=== PATIENT | male | born 1965 ===

== ENCOUNTER 2017-10-14 07:21 | Day surgery (SDC) | payer OTHER ==
--- NOTE | 2017-10-11 16:03 | HP ---
PREOPERATIVE HISTORY AND PHYSICAL: DATE OF SURGERY/ADMISSION: 10/14/17 DATE OF OFFICE VISIT/ENCOUNTER: 10/05/17 ATTENDING SURGEON: Jaylin Ahumada MD* (dictated by RORO Hernandez). PROCEDURE: Excision mass, right ring finger. CHIEF COMPLAINT: Mass, right ring finger. HISTORY OF PRESENT ILLNESS: This is a 52-year-old male who sustained injury to his right finger while at work in November of 2016. A part that he was using fell on his hand, arm, and shoulder. It was a very heavy part approximately 200 pounds. Since then he developed a lump on his right finger and the lump is gradually getting bigger and becoming increasingly bothersome. He denies any tingling or numbness associated with it and he thinks using the right hand causes pain. 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 He would like to have the lump surgically excised. PAST MEDICAL HISTORY: History of hypertension. PAST SURGICAL HISTORY: 1. Cervical spine surgery, C6-C7. 2. Cyst excision left wrist. CURRENT MEDICATIONS: None. ALLERGIES: No known drug allergies. FAMILY MEDICAL HISTORY: Noncontributory. The patient's grandmother is 105 years old and the oldest woman in [employer]. SOCIAL HISTORY: The patient is an employed as a manual lathe machinist. He works for [employer]. He denies smoking, recreational drug use and does not . REVIEW OF SYSTEMS: cardiothoracic: Negative for hypertension, chest pain, palpitations, or edema. Respiratory: Negative for shortness of breath with exertion. Chronic cough and wheezing. GI: Negative for nausea, vomiting , diarrhea, constipation, or GERD. : Negative for nocturia, urinary frequency, urgency, history of UTIs, or kidney problems. Musculoskeletal: Positive for current complaint. Neurologic: Negative for chronic or intermittent back pain or history of fracture. Neurological: Negative for paresthesias, numbness, history of seizures, stroke, or poor balance. Endocrine : Negative for diabetes or thyroid issues. Hematologic: Negative for easy bruising, anemia, bleeding disorder, or history of DVT. Infectious Disease: Negative for history of MRSA, hepatitis C, or HIV. PHYSICAL EXAMINATION GENERAL: Well-developed, well-nourished 52-year-old male, in no acute distress. VITAL SIGNS: Height is 6 feet 1 inch, weight 213 pounds. Blood pressure 140/94 , pulse rate 78. HEENT: Normocephalic, atraumatic. Pupils are equal, round, and reactive to light and accommodation. Extraocular movements are intact. NECK: Supple. No palpable lymph nodes. Throat is clear. PULMONARY: Lungs are clear to auscultation bilaterally. No wheezes, rales, or rhonchi. CARDIOVASCULAR: Regular rate and rhythm. S1 and S2. No murmurs, rubs, or gallops. No edema. ABDOMEN: Positive bowel sounds, soft, nontender. NEUROLOGIC: Alert and oriented x3. Cranial nerves II through XII are intact. Sensation is intact. MUSCULOSKELETAL: On exam of his right hand, he has a 1 cm diameter mass on the right ring finger at the proximal phalanx level. It is slightly tender to palpation. Negative Tinel's sign. He can make a fist and has full extension of his fingers. Sensation is intact to the tip of the finger. SKIN: Intact. IMAGING STUDIES: X-rays AP, lateral and oblique to the right ring finger looks normal. IMPRESSION: Right ring finger soft tissue mass. PLAN: The patient is scheduled to undergo an excision mass of right ring finger with Dr. Ahumada on 10/14/17. He will return to the office in 10 days postop for followup and suture removal. A prescription for Ultracet was e- scribed to the patient's pharmacy for postoperative pain management. RORO HERNANDEZ [id number]/[facility] #: [id number] [facility] CENTERNichelle
[~2017-10-14 07:21] MED LIST: Buffered Lidocaine 0.9% SYRIN* 5 ML/SYR SYRINGE INTRADERM ONE; Dexamethasone TAB* 4 MG ONE; Dexamethasone TAB* 4 MG PO ONE; DiMENhydriNATE IV* 50 MG/ML VIAL IV PUSH PRN; Famotidine IV* 10 MG/ML 2 ML (20 mg) IV ONE; Famotidine IV* 10 MG/ML 2 ML (20 mg) ONE; Lidocaine 1% INJ* 10 MG/ML 30 ML SDV ONE; Morphine INJ* 2 MG/ML 1 ML SYRINGE (TWO MG - NEW SYRINGE VERSION) IV PRN; Naloxone* 0.4 MG/ML 1 ML VIAL IV PRN; Ondansetron ODT TAB* 4 MG ONE; Ondansetron TAB* 4 MG PO ONE; PROCHLORPERAZINE INJ 5 MG/ML 2 ML VIAL IV PRN; fentaNYL* 50 MCG/ML 2 ML VIAL (100 MCG VIAL) IV PRN; oxyCODONE/Acetamin 5/325 MG* TAB PO PRN
[2017-10-14] MEDS ORDERED: KETAMINE HCL* 50 MG/ML 10 ML VIAL ONE (08:20)
[2017-10-14] MEDS ORDERED: fentaNYL* 50 MCG/ML 2 ML VIAL (100 MCG VIAL) ONE (08:20)
[2017-10-14] MEDS ORDERED: Midazolam* 1 MG/ML 5 ML VIAL (5 MG) ONE (08:20)
[2017-10-14] MEDS ORDERED: hydrALAZINE IV* 20 MG/ML VIAL ONE (08:48)
[2017-10-14] MEDS ORDERED: Labetalol IV* 5 MG/ML 20 ML VIAL ONE (08:48)
[2017-10-14] MEDS ORDERED: Ketorolac INJ* 30 MG/ML 1 ML VIAL ONE (09:22)
[2017-10-14 10:05] VITALS: BP 133/83
--- NOTE | 2017-10-14 20:49 | OP ---
DATE OF OPERATION: 10/14/17 - [facility] DATE OF : 69. SURGEON: Dr. Ahumada. CREATIVE MANAGER: RORO Hernandez. ANESTHESIA: Local MAC. PRE-OP DIAGNOSIS: Right ring finger mass. POST-OP DIAGNOSIS: Right ring finger mass. OPERATIVE PROCEDURE: Removal of right ring finger mass. INDICATIONS FOR PROCEDURE: Tyrone is a 52-year-old man with a painful mass at the MP flex and crease of his right ring finger. He presents for removal. ESTIMATED BLOOD LOSS: Zero. TOURNIQUET TIME: 20 minutes. DESCRIPTION OF PROCEDURE: The patient was brought to the operating room, was given a sedation anesthetic, and a digital block with 10 cc of 1% plain lidocaine. The skin of his right hand and forearm was prepped and draped in the usual sterile fashion. The hand and forearm were exsanguinated and the tourniquet elevated to 250 mmHg. A transverse incision was made centered over the mass and dissected through the subcutaneous tissue. The digital neurovascular bundle was retracted by the surgical territory manager, Bisi Loving. The mass was a ganglion cyst emanating from the flexor tendon sheath. It was removed with a small portion of flexor tendon sheath and sent for pathology. The wound was irrigated and the skin edges were reapproximated with 4-0 nylon suture. The wound was dressed with Xeroform, 4x4, Webril, and Coban. The patient tolerated the procedure well and was brought to the recovery room in good condition. [id number]/[facility] #: [id number] [facility]
== END 2017-10-14 09:58 | disposition home or self-care (01) ==
LOC: OREAST 07:21
PROVIDERS: ATTEND Orthopaedic Surgery
DX: M67.441 Ganglion, right hand (principal); I10 Essential (primary) hypertension
CPT/HCPCS: 88304; A9270-GY; J0360; J1885; J2250; J3010; J8540

== ENCOUNTER 2019-05-08 11:25 | Day surgery (SDC) | payer BC ==
--- NOTE | 2019-05-08 09:41 | HP ---
PREOPERATIVE HISTORY AND PHYSICAL: DATE OF ADMISSION/SURGERY: 05/08/19 DATE OF OFFICE VISIT/ENCOUNTER: 05/07/19 ATTENDING SURGEON: Jaylin Jauregui MD * (DICTATED BY RORO AUGUSTINE) PROCEDURE: Ganglion cyst excision, right wrist. HISTORY OF PRESENT ILLNESS: This is a 53-year-old male who has a cystic mass on the volar radial aspect of his right wrist that has been present for several months. It has become bothersome for him and he would like to have it surgically removed. He denies any injury. PAST MEDICAL HISTORY: Unremarkable. PAST SURGICAL HISTORY: 1. Neck surgery, fusion at C6-C7. 2. Left wrist surgery. 3. Right ring finger surgery. CURRENT MEDICATIONS: None. ALLERGIES: No known drug allergies. FAMILY MEDICAL HISTORY: Noncontributory. 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 He also works in [employer]. He denies tobacco use, recreational drug use, and does not drink alcohol. REVIEW OF SYSTEMS: Negative for general, cephalic, cardiovascular, respiratory , GI, , other musculoskeletal, integumentary, endocrine, neurologic, and hematologic symptoms. Infectious Disease: Negative for MRSA, hepatitis C, HIV. PHYSICAL EXAMINATION GENERAL: A well-developed, well-nourished 53-year-old male, in no acute distress. VITAL SIGNS: Height 6 feet tall, weight 215 pounds. Pulse rate 97, blood pressure 164/94. HEENT: Normocephalic, atraumatic. Pupils are equal, round, and reactive to light and accommodation. Extraocular movements are intact. Throat is clear. NECK: Supple. No palpable lymph nodes. PULMONARY: Lungs are clear to auscultation bilaterally. No wheezes, rales, or rhonchi. CARDIOVASCULAR: Regular rate and rhythm. S1, S2. No murmurs, rubs, or gallops. No edema. ABDOMEN: Positive bowel sounds. Soft, nontender. MUSCULOSKELETAL: On exam of his right wrist, he has some tenderness at the radiocarpal aspect of the right wrist consistent with a ganglion cyst, pain with full flexion. He can make a full fist. Skin is intact. Neurovascular function is intact. NEUROLOGICAL: Alert and oriented x3. Cranial nerves II through XII are intact. Sensation is intact to light touch. IMPRESSION: Right wrist ganglion cyst. PLAN: The patient is scheduled to undergo a ganglion cyst excision, right wrist , with Dr. Jauregui on 05/08/19. He will return to the office 10 days postop for followup and suture removal. A prescription for tramadol was e-scribed to the patient's pharmacy for postoperative pain management. RORO AUGUSTINE [id number]/[facility] #: [id number] NIKA
[~2019-05-08 11:25] MED LIST changes: -Buffered Lidocaine 0.9% SYRIN* 5 ML/SYR SYRINGE INTRADERM ONE; +Buffered Lidocaine 1% SYRIN* 1 ML/SYRINGE INTRADERM ONE; +Dexamethasone IV* 4 MG/ML 1 ML (4 MG) IV SLOW PU ONE; -Dexamethasone TAB* 4 MG ONE; -Dexamethasone TAB* 4 MG PO ONE; -Famotidine IV* 10 MG/ML 2 ML (20 mg) ONE; +HYDROcodone/ACETAMIN 5-325 MG* 1 TAB PO PRN; +Ketorolac INJ* 30 MG/ML 1 ML VIAL IV PRN; +Lactated Ringers 1000 ML Bag* 1,000 ML IV SCH; -Morphine INJ* 2 MG/ML 1 ML SYRINGE (TWO MG - NEW SYRINGE VERSION) IV PRN; -Ondansetron ODT TAB* 4 MG ONE; -Ondansetron TAB* 4 MG PO ONE; -PROCHLORPERAZINE INJ 5 MG/ML 2 ML VIAL IV PRN
[2019-05-08] MEDS ORDERED: Dexamethasone IV* 4 MG/ML 1 ML (4 MG) ONE (11:58)
[2019-05-08] MEDS ORDERED: Famotidine IV* 10 MG/ML 2 ML (20 mg) ONE (11:58)
[2019-05-08] MEDS ORDERED: Midazolam* 1 MG/ML 5 ML VIAL (5 MG) ONE (14:32)
[2019-05-08] MEDS ORDERED: fentaNYL* 50 MCG/ML 2 ML VIAL (100 MCG VIAL) ONE (14:32)
[2019-05-08] MEDS ORDERED: Propofol* 10 MG/ML 20 ML BTL ONE (14:32)
[2019-05-08] MEDS ORDERED: Lidocaine 2% PF * 5 ML VIAL ONE (14:32)
[2019-05-08 15:37] VITALS: BP 149/101
--- NOTE | 2019-05-09 12:25 | OP ---
DATE OF OPERATION: 05/08/19 [facility] DATE OF : 69 SURGEON: Jaylin Jauregui MD BROOM BUNDLER: RORO Hernandez ANESTHESIA: Local MAC. PRE-OP DIAGNOSIS: Right wrist ganglion. POST-OP DIAGNOSIS: Right wrist ganglion. OPERATIVE PROCEDURE: Removal of right wrist ganglion. ESTIMATED BLOOD LOSS: Zero. TOURNIQUET TIME: Approximately 15 minutes. INDICATIONS FOR PROCEDURE: Tyrone is a 53-year-old male who complains of pain on the volar radial aspect of his right wrist. He says it feels the way his left wrist felt when he had a ganglion cyst, which has been excised and he has healed well from. He presents for ganglion cyst excision on the right wrist. DESCRIPTION OF PROCEDURE: The patient was brought to the operating room, was given a sedation anesthetic and a local infiltration of 10 cc of 1% plain lidocaine on the volar radial aspect of his right wrist. The skin of his right upper extremity was prepped and draped in the usual sterile fashion. The upper extremity was exsanguinated and the tourniquet elevated to 250 mmHg. A V- shaped incision was made centered over the right distal radius volar side and we dissected bluntly through the subcutaneous tissue. There was a small mass emanating from the FCR tendon sheath and I traced it down to the wrist joint capsule. It was removed with a small portion of the wrist joint capsule and sent for pathology. The edges of the capsule were cauterized with the Bovie. The wound was irrigated and the skin edges reapproximated with 4-0 nylon suture. The wound was dressed with Xeroform, 4x4, Webril, and an Kunal wrap. The patient tolerated the procedure well and was brought to the recovery room in good condition. [id number]/[facility] #: [id number] [facility]OSPITALNichelle
== END 2019-05-08 15:46 | disposition home or self-care (01) ==
LOC: OREAST 11:25
PROVIDERS: ATTEND Orthopaedic Surgery
DX: M67.431 Ganglion, right wrist (principal); M25.531 Pain in right wrist; Z98.1 Arthrodesis status
CPT/HCPCS: 88304; J1100; J2250; J2704; J3010